=== PATIENT | female | born 2000 | race Caucasian/White ===

== ENCOUNTER → 2023-12-09 10:40 | Outpatient (BNVA) | payer MEDICAID, SELFPAY | PROVIDERS: Family Provider Nurse Practitioner Family; PCP Nurse Practitioner Family; Visit Provider Registered Nurse | DX: I10 Essential (primary) hypertension (principal); J18.9 Pneumonia, unspecified organism; F41.8 Other specified anxiety disorders | CPT/HCPCS: 80053; 84443; 85025 ==

== ENCOUNTER → 2024-10-31 13:06 | Outpatient (BNVA) | payer MEDICAID, SELFPAY | PROVIDERS: PCP Registered Nurse; Visit Provider Registered Nurse | DX: N20.0 Calculus of kidney (principal) | CPT/HCPCS: 81000 ==

== ENCOUNTER 2024-11-03 12:43 | Outpatient (CLI) | payer MEDICAID, SELFPAY ==
--- NOTE | 2024-11-03 13:00 | CT_ITS ---
WS: [id number] CT ABDOMEN PELVIS TECHNIQUE: Noncontrast CT of the abdomen and pelvis with coronal and sagittal reformatted images. CLINICAL INFORMATION: N20.0 - Calculus of kidney COMPARISON: None. DLP: 809.[address] scans at [facility] use at least one of these dose optimization techniques: automated exposure control; mA and/or kV adjustment per patient size (includes targeted exams where dose is matched to clinical indication); or iterative reconstruction. FINDINGS: Calculus LEFT proximal ureter at the UPJ measuring approximately 4.8 mm in transverse dimension. This measures approximately 6.5 mm craniocaudal. Moderate LEFT hydronephrosis. Mild LEFT pelvicaliectasis. Distal LEFT ureter is decompressed. Adrenal glands are normal. No obstructing RIGHT renal or ureteral calculi. Lung bases are well aerated. Normal noncontrast liver and spleen. Noncontrast pancreas appears normal. Normal caliber abdominal aorta. Sigmoid diverticulosis. CT/CT kidney stone [id number] IMPRESSION: 1. Calculus LEFT proximal ureter at the UPJ measuring approximately 4.8 mm in transverse dimension. This measures approximately 6.5 mm craniocaudal. 2. Moderate LEFT hydronephrosis. Mild LEFT pelvicaliectasis. Distal LEFT urete r is decompressed. 3. No other acute findings. Notified Charles Maradiaga's Nurse at 11/03/2024 3:29 PM.
== END 2024-11-03 12:44 | disposition home or self-care (01) ==
LOC: RAD 12:45
PROVIDERS: PCP Registered Nurse; Visit Provider Registered Nurse
DX: N13.2 Hydronephrosis with renal and ureteral calculous obstruction (principal)
CPT/HCPCS: 74176; 80053; 81000; 85025

== ENCOUNTER → 2024-11-07 13:10 | Outpatient (BNVA) | payer MEDICAID, SELFPAY | PROVIDERS: PCP Registered Nurse; Visit Provider Registered Nurse | DX: N20.0 Calculus of kidney (principal) | CPT/HCPCS: 81000 ==

== ENCOUNTER → 2024-12-27 15:04 | Outpatient (BNVA) | payer MEDICAID, SELFPAY | PROVIDERS: PCP Registered Nurse; Visit Provider Registered Nurse | DX: R10.9 Unspecified abdominal pain (principal) | CPT/HCPCS: 81000 ==

== ENCOUNTER 2025-01-20 15:18 | Outpatient (CLI) | payer MEDICAID, SELFPAY ==
--- NOTE | 2025-01-20 15:30 | USR_ITS ---
PROCEDURE INFORMATION: Exam: US Retroperitoneal, Complete, Kidneys, Aorta, IVC. Exam date and time: 01/20/2025 4:02 PM Age: 24 years old Clinical indication: Condition or disease; Other: Unspecified hydronephrosis; Additional info: N13.30 - unspecified hydronephrosis TECHNIQUE: Imaging protocol: Real-time ultrasound of the retroperitoneum with image documentation. Complete exam focused on the bilateral kidneys, aorta, and inferior vena cava. COMPARISON: CT kidney stone [id number] 11/03/2024 12:51 PM FINDINGS: Right kidney: Right kidney measures 10.8 x 6 x 4.7 cm with the volume of 158 mL. Right renal cortex measures 1.5 cm. No hydronephrosis or significant focal abnormality. Left kidney: Left kidney measures 10.6 x 6.4 x 5.3 cm with a volume of 186 mL. Left renal cortex measures 1.9 cm. Suggestion of mild prominence of the collecting structures of the left kidney in relation to the right or mild hydronephrosis. No significant focal abnormality. Aorta: Abdominal aorta is unremarkable in caliber, measuring 1.2 cm proximal, 1.3 cm mid, and 1.1 cm distal. Urinary bladder: Visualized urinary bladder appears unremarkable, without significant intrinsic abnormality. US/US renal BI* [id number] IMPRESSION: Suggestion of mild prominence of the collecting structures of the left kidney or hydronephrosis in relation to the right. Otherwise unremarkable.
== END 2025-01-20 15:19 | disposition home or self-care (01) ==
LOC: RAD 15:19
PROVIDERS: PCP Registered Nurse; Visit Provider Registered Nurse
DX: N13.30 Unspecified hydronephrosis (principal)
CPT/HCPCS: 76770